=== PATIENT | female | born 1940 | race Caucasian/White ===

== ENCOUNTER 2018-06-26 15:47 | Inpatient (IN) | payer MEDICARE ==
--- NOTE | 2018-06-26 17:03 | RAD ---
LEFT HIP TWO VIEWS: HISTORY: Left hip pain. FINDINGS: Impaction at a subcapital fracture with minimal superior displacement of the major distal fragment. Mild degenerative changes of the hip. IMPRESSION: Impacted left hip fracture. POS: LATASHA
--- NOTE | 2018-06-26 17:04 | RAD ---
AP PELVIS ONE VIEW: HISTORY: Fall. Pelvic pain. FINDINGS: Left subcapital hip fracture again demonstrated. Sacral ala and pelvic rings are intact. Mild degen erative changes of the right hip and lumbar spine. IMPRESSION: Impacted subcapital fracture, left hip. POS: LATASHA
[2018-06-26 17:05] LABS: Bilirubin Negative (Negative); Blood, Urine Negative (Negative); Clarity CLEAR (Clear); Glucose, Urine (Dipstick) Negative (Negative); Leukocyte Negative (Negative); Nitrite Negative (Negative); Protein, Urine (Dipstick) Negative (Neg-Trace); Specific Gravity, Urine 1.017 (1.002-1.036); Urobilinogen 0.2 mg/dL (0.2-1.0); pH, Urine 6.5 (5.0-9.0)
[2018-06-26] MEDS ORDERED: Ondansetron PF 4 MG/2 ML Vial ONE (17:37)
[2018-06-26] MEDS ORDERED: Morphine 4 MG/ML VIAL ONE (17:37)
[2018-06-26 17:55] LABS: #Lymphocytes 0.8 thou/uL (1.20-3.40); #Monocytes 0.7 thou/uL (0.11-0.59); #Neutrophils 11.7 thou/uL (1.40-6.50); %Basophils 0.1 % (0.0-1.0); %Eosinophils 0.2 % (0.0-10.0); %Lymphocytes 6.3 % (21.0-51.0); %Monocytes 5.4 % (0.0-10.0); %Neutrophils 88.1 % (42.0-75.0); Hemoglobin 12.4 g/dL (12.0-16.0); Mean Corpuscular HGB CONC 33.1 g/dL (32.0-36.0); Mean Corpuscular Hemoglobin 30.6 pg (27.0-31.0); Mean Corpuscular Volume 92.4 fL (78.0-98.0); Mean Platelet Volume 8.1 fL (7.4-10.4); Platelet Count 177 thou/uL (130-400); RBC Distribution Width 12.3 % (11.5-14.5); Red Blood Cell (RBC) Count 4.07 mill/uL (4.20-5.40); White Blood Cell (WBC) Count 13.3 thou/uL (4.8-10.8)
[2018-06-26 18:03] LABS: Prothrombin Time 13.3 SEC (12.0-14.7)
[2018-06-26 18:17] LABS: ALT (SGPT) 36 U/L (8-55); AST (SGOT) 33 U/L (5-34); Albumin 4.1 g/dL (3.4-4.8); Alkaline Phosphatase 83 U/L (40-150); Anion Gap 17 mmol/L (10-20); BUN (Urea Nitrogen) 18 mg/dL (9.8-20.1); Bilirubin, Total 0.5 mg/dL (0.2-1.2); Calc. Creatinine Clearance 0 mL/min (70-130); Calcium 9.7 mg/dL (7.8-10.44); Carbon Dioxide 21 mmol/L (23-31); Chloride 101 mmol/L (98-107); Estimated GFR-MDRD 76; Globulin 3.1 g/dL (2.4-3.5); Glucose 106 mg/dL (83-110); Potassium 4.5 mmol/L (3.5-5.1); Protein, Total 7.2 g/dL (6.0-8.3); Sodium 134 mmol/L (136-145)
--- NOTE | 2018-06-26 18:44 | HP ---
ATTENDING SURGEON: Dr. Day. CONSULTATION: Orthopedics, Dr. Hsu. HISTORY OF PRESENT ILLNESS: The patient is a 78-year-old woman, who was transferred here from our facility from [facility], where she reportedly had a fall at the facility she lives in. The patient denies any loss of consciousness. She was brought to the emergency department there and underwent evaluation, was noted to have a left hip fracture. At which time, she was transferred to our facility for admission and orthopedic examination. ALLERGIES: PENICILLIN. CURRENT MEDICATIONS: 1. Calcium. 2. Loperamide. 3. Zofran. 4. Ibuprofen. PAST MEDICAL HISTORY: Breast, colon, and brain cancer. PAST SURGICAL HISTORY: Colon resection x2, lumpectomy on the left, and cholecystectomy. SOCIAL HISTORY: The patient lives in an assisted living facility. There is no history of drug, tobacco, or alcohol use. REVIEW OF SYSTEMS: A 10-point review of systems is negative except as otherwise stated. PHYSICAL EXAMINATION: VITAL SIGNS: Blood pressure 152/69, heart rate 102, respirations 17, oxygen saturation 93% on room air, and temperature is 99.3. GENERAL: The patient is resting comfortably in bed. She is awake, alert, and oriented x2. The patient does seem to have some confusion, but is easily redirected regarding time and location. HEENT: Normocephalic and atraumatic. Eyes, extraocular movement intact. PERRLA bilaterally. Ears are atraumatic without discharge. Nose is atraumatic without discharge. Oropharynx is clear. NECK: Nontender. Trachea is in midline. No JVD. CHEST: Clear to auscultation with good inspiratory and expiratory effort. HEART: Regular rate and rhythm. ABDOMEN: Soft, flat, nontender with active bowel sounds. PELVIS: Stable with tenderness to the left hip, consistent with her fracture. EXTREMITIES: Neurovascularly intact x4. The patient does have a small contusion noted to her lateral left knee. BACK: Atraumatic and nontender. LABORATORY EXAMINATION: White blood cell count 13.3, hemoglobin 12.4, hematocrit 37.6, and platelets 177. Urinalysis is unremarkable. The remaining labs are still pending. RADIOGRAPHIC FINDINGS: AP pelvis shows an impacted subcapital left femoral neck fracture. Views of the left hip again demonstrate impacted left hip fracture. ASSESSMENT: 1. Status post fall. 2. Left hip fracture. 3. History of brain, colon, and breast cancer. PLAN: Plan will be to admit the patient to the surgical floor. She will be made n.p.o. after midnight for plans of surgical intervention tomorrow. The patient will have pain control, pulmonary toilet, gastritis and mechanical VTE prophylaxis. The evaluation, examination, and laboratory findings will be discussed with Dr. Day after this dictation. The patient was evaluated in the emergency department by Dr. Hsu. Job ID: [id number]
[2018-06-26] MEDS ORDERED: Dextrose 50% Abboject 50 ML SYRINGE SLOW IVP PRN (19:12)
[2018-06-26] MEDS ORDERED: Dextrose 5% in Water 1,000 ML IV PRN (19:12)
[2018-06-26 19:46] LABS: #Lymphocytes 1.1 thou/uL (1.20-3.40); #Monocytes 0.8 thou/uL (0.11-0.59); #Neutrophils 10.7 thou/uL (1.40-6.50); %Basophils 0.1 % (0.0-1.0); %Eosinophils 0.3 % (0.0-10.0); %Lymphocytes 8.3 % (21.0-51.0); %Monocytes 6.4 % (0.0-10.0); %Neutrophils 84.8 % (42.0-75.0); Hemoglobin 11.7 g/dL (12.0-16.0); Mean Corpuscular HGB CONC 33.2 g/dL (32.0-36.0); Mean Corpuscular Hemoglobin 30.3 pg (27.0-31.0); Mean Corpuscular Volume 91.5 fL (78.0-98.0); Mean Platelet Volume 8.3 fL (7.4-10.4); Platelet Count 174 thou/uL (130-400); RBC Distribution Width 12.3 % (11.5-14.5); Red Blood Cell (RBC) Count 3.85 mill/uL (4.20-5.40); White Blood Cell (WBC) Count 12.6 thou/uL (4.8-10.8)
[2018-06-26 19:58] LABS: Anion Gap 14 mmol/L (10-20); BUN (Urea Nitrogen) 17 mg/dL (9.8-20.1); Calc. Creatinine Clearance 0 mL/min (70-130); Calcium 9.4 mg/dL (7.8-10.44); Carbon Dioxide 23 mmol/L (23-31); Chloride 102 mmol/L (98-107); Estimated GFR-MDRD 76; Glucose 114 mg/dL (83-110); Phosphorus 3.7 mg/dL (2.3-4.7); Potassium 4.3 mmol/L (3.5-5.1); Sodium 135 mmol/L (136-145)
[2018-06-26] MEDS: Acetaminophen 1,000 MG in Premix Bag 1 BAG IVPB SCH (20:10)
[2018-06-26] MEDS: Morphine 4 MG/ML VIAL SLOW IVP PRN (21:22)
[2018-06-26 22:52] VITALS: BMI 26.4
[2018-06-26] MEDS: Sodium Chloride 0.9% 1,000 ML IV SCH (23:51)
[2018-06-27] MEDS: Acetaminophen 1,000 MG in Premix Bag 1 BAG IVPB SCH ×3 (02:21→13:19)
[2018-06-27] MEDS: Morphine 4 MG/ML VIAL SLOW IVP PRN ×2 (06:07→14:12)
[2018-06-27 06:16] LABS: #Eosinphils 0.1 thou/uL (0.0-0.7); #Lymphocytes 0.9 thou/uL (1.20-3.40); #Monocytes 0.5 thou/uL (0.11-0.59); #Neutrophils 5.6 thou/uL (1.40-6.50); %Basophils 0.5 % (0.0-1.0); %Eosinophils 0.9 % (0.0-10.0); %Lymphocytes 13.1 % (21.0-51.0); %Monocytes 6.8 % (0.0-10.0); %Neutrophils 78.8 % (42.0-75.0); Hemoglobin 11.3 g/dL (12.0-16.0); Mean Corpuscular HGB CONC 32.9 g/dL (32.0-36.0); Mean Corpuscular Hemoglobin 30.3 pg (27.0-31.0); Mean Corpuscular Volume 92.2 fL (78.0-98.0); Mean Platelet Volume 8.2 fL (7.4-10.4); Platelet Count 154 thou/uL (130-400); RBC Distribution Width 12.4 % (11.5-14.5); Red Blood Cell (RBC) Count 3.74 mill/uL (4.20-5.40); White Blood Cell (WBC) Count 7.1 thou/uL (4.8-10.8)
[2018-06-27] MEDS: Sodium Chloride 0.9% 1,000 ML IV SCH ×2 (06:36→08:28)
[2018-06-27 06:37] LABS: Anion Gap 13 mmol/L (10-20); BUN (Urea Nitrogen) 13 mg/dL (9.8-20.1); Calc. Creatinine Clearance 68 mL/min (70-130); Carbon Dioxide 24 mmol/L (23-31); Chloride 104 mmol/L (98-107); Estimated GFR-MDRD 69; Glucose 102 mg/dL (83-110); Magnesium 2.2 mg/dL (1.6-2.6); Phosphorus 3.7 mg/dL (2.3-4.7); Potassium 4.1 mmol/L (3.5-5.1); Sodium 137 mmol/L (136-145)
[2018-06-27] MEDS ORDERED: Clindamycin/D5W 900 mg/50 ml Premix Bag ONE (08:49)
[2018-06-27] MEDS ORDERED: Levofloxacin 500 mg/D5W 100 ml Premix Bag ONE (08:49)
[2018-06-27] MEDS ORDERED: Prevnar 13-Val Conj/PF 0.5 ML SYRINGE IM ONE (09:00)
--- NOTE | 2018-06-27 09:27 | CON ---
DATE OF CONSULTATION: BRIEF HISTORY OF PRESENT ILLNESS: The patient is a 78-year-old lady who earlier this evening fell at the care facility where she lives. She reports she was just trying to get into bed when she slipped, fell, injuring her left hip. She was seen and evaluated at the [facility] in [place] where x-rays demonstrated impacted subcapital femoral neck fracture of the left hip. As such, she now is transferred to [place] and admitted to the trauma service for further care. PAST MEDICAL HISTORY: Remarkable for breast cancer, colon cancer, as well as brain cancer. PAST SURGICAL HISTORY: Includes colon resection x2, lumpectomy left breast, as well as cholecystectomy. MEDICATIONS: Include calcium, loperamide, Zofran, and ibuprofen. ALLERGIES: TO PENICILLIN. THIS IS A CHILDHOOD ALLERGY WITH SOME SWELLING AND SHORTNESS OF BREATH. SOCIAL HISTORY: She lives in assisted living facility. She denies alcohol, tobacco, or drug use. FAMILY HISTORY: Noncontributory. REVIEW OF SYSTEMS: Denies recent fevers, chills, or sweats. Denies chest pain or shortness of breath. Denies numbness or tingling in the lower extremities. PHYSICAL EXAMINATION: VITAL SIGNS: She is found to have temperature 98.8, heart rate of 85, respiratory rate of 16, and blood pressure 122/75. GENERAL: The patient is found to be awake, alert, although does become easily confused. HEENT: Atraumatic and normocephalic. HEART: Shows a regular rate and rhythm without murmur. CHEST: Clear to auscultation with good breath sounds bilaterally. ABDOMEN: Flat, soft with normal bowel sounds and scars from her prior surgeries. PELVIS: Stable. EXTREMITIES: Remarkable for a left lower extremity that is just held in slight external rotation at the hip, but there is no gross shortening. She has pain with any type of log-rolling or movement of the leg whatsoever and the pain is felt at the groin. The knee, ankle and foot appear atraumatic. She is moving her toes normally. Has intact subjective sensation over the dorsal and plantar aspects of the foot. LABORATORY DATA: Labs found to have a white count of 13, hematocrit of 37.6, 177,000 platelets. She has an INR of 1.0. Her basic metabolic panel is roughly within normal limits with the exception of a slightly low sodium of 134. X-rays of AP pelvis as well as two view left hip remarkable for an impacted subcapital femoral neck fracture with some varus alignment. ASSESSMENT: The patient is a 78-year-old status post fall sustaining left femoral neck fracture with comorbidities including history of brain, colon and breast cancer. PLAN: At this time, the patient will be admitted to the surgical floor on the Trauma Service. She is n.p.o. We will plan on proceeding with a left hip hemiarthroplasty with plans to send the femoral head to pathology to rule out metastatic pathologic cancer. Today I discussed with the patient risks and benefits of surgery. These include, but are not limited to bleeding, infection, nerve injury, DVT, PE, loss of limb or life. We also discussed risks of dislocation following this hemiarthroplasty procedure. She appears to understand and does wish to proceed. Consent will be obtained prior to surgery. Job ID: [id number]
[2018-06-27] MEDS ORDERED: Promethazine HCl 25 MG/ML VIAL IM PRN (10:04)
[2018-06-27] MEDS ORDERED: Ondansetron HCl/PF 4 MG/2 ML Vial IVP PRN (10:04)
[2018-06-27] MEDS ORDERED: Promethazine HCl 25 MG/ML VIAL SLOW IVP PRN (10:04)
[2018-06-27] MEDS ORDERED: SUGAMMADEX SODIUM 200 MG/2 ML VIAL ONE (10:59)
--- NOTE | 2018-06-27 11:48 | RAD ---
LEFT HIP 2 VIEWS: HISTORY: Left hip fracture. FINDINGS: Total left hip prosthesis is in place without perihardware lucency. Skin bridget overlie the incisio n. IMPRESSION: Left hip prosthesis is in good radiographic position. POS: LATASHA
[2018-06-27] MEDS ORDERED: traMADol HCl 50 MG TAB PO PRN (12:06)
--- NOTE | 2018-06-27 12:24 | OP ---
DATE OF PROCEDURE: 06/27/2018 PREOPERATIVE DIAGNOSIS: Left subcapital femoral neck fracture. POSTOPERATIVE DIAGNOSIS: Left subcapital femoral neck fracture. PROCEDURE PERFORMED: Left hip hemiarthroplasty. ANESTHESIA: General. MANIFEST CLERK: Floyd. ESTIMATED BLOOD LOSS: 350 mL. IMPLANTS: DePuy [place] size 4 stem was used with an ARTICUL/FABIANA +5 head and a bipolar 28 x 44 mm cup. SPECIMEN: Femoral head, sent to Pathology for gross and micro given history of extensive cancer diagnosis. DRAINS: None. COMPLICATIONS: None. OUTCOME: Stable hemiarthroplasty. INDICATION: The patient is a 78-year-old lady, status post ground level fall, sustaining a left subcapital femoral neck fracture. After discussion with the patient and her family, we have decided to proceed with hemiarthroplasty. Risks and benefits have been discussed with the patient. Risks include, but are not limited to bleeding, infection, nerve injury, DVT, PE, dislocation, loss of limb or life. They appear to understand and do wish to proceed. Consent has been obtained. DESCRIPTION OF PROCEDURE: The patient was brought to the operating room and a time-out was performed followed by induction of general anesthesia. Next, the patient was positioned in a right lateral decubitus position on the operating room table and a sterile prep and drape performed of the left lower extremity. Next, a curvilinear incision was made, centered over the greater trochanter after skin was sharply incised. Dissection carried down through the subcutaneous fat to the underlying fascia flaquita and tensor fascia. This structure was incised in line with the skin incision and reflected anteriorly and posteriorly with a Charnley retractor. The trochanteric bursa was swept off the short external rotators and then elevator was passed under the abductors. The piriformis, superior and inferior gemelli were divided off the posterior aspect of the proximal femur, tagged and then reflected posteriorly gaining access to the posterior capsule. A T-capsulotomy was then performed with leaflets of the capsule tagged for eventual repair. At this point, a T-handle awl was inserted in the femoral head and the femoral head was removed without difficulty, sized to size 44. Next, an oscillating saw was used to make a femoral neck cut. This was followed by box chisel and then T-handle awl and lateralizing reamer. Progressive T-handle awls were passed down the canal up to a size 4. Next, broaching was started at size 1 and continued up to size 4, which gave good fit and fill. At this point, trial reductions were performed and a +5 head was found to give good stability and was felt to be clinically equal leg lengths. As such, the trial broach was then removed. The proximal femur thoroughly irrigated with normal saline with Pulsavac and then the final 4 stem was introduced in the proximal femur followed by insertion of the bipolar head. The hip was reduced, found to have excellent stability. Next, the capsule was reapproximated with #2 Vicryl. This was followed by reapproximation of the short external rotators with #2 Vicryl, #2 Vicryl also used for the tensor fascia and fascia flaquita followed by 0 Vicryl for the Abraham fascia, 2-0 Vicryl subcutaneously, and bridget for the skin. Xeroform gauze and tape dressing were applied to the thigh and then the patient was transferred to recovery room in stable condition. There were no complications. The patient tolerated the procedure well. Job ID: [id number]
[2018-06-27] MEDS: traMADol HCl 50 MG TAB PO PRN (14:04)
[2018-06-27] MEDS ORDERED: Ondansetron PF 4 MG/2 ML Vial IVP PRN (14:11)
[2018-06-27] MEDS ORDERED: Morphine 4 MG/ML VIAL SLOW IVP PRN (14:13)
[2018-06-27] MEDS ORDERED: Ibuprofen 600 MG TAB PO SCH (14:15)
[2018-06-27] MEDS: Clindamycin/D5W 900 MG in Premix Bag 1 BAG IVPB SCH (17:35)
--- NOTE | 2018-06-27 17:42 | PRG ---
DATE OF SERVICE: 06/27/2018 SUBJECTIVE: The patient is hospital day #2, here on the surgical floor. She was admitted for ground level fall, where she sustained a left hip fracture. She is scheduled to undergo surgical repair today by Dr. Hsu. The patient has been n.p.o. after midnight. Her pain was controlled overnight. The patient has no new complaints. OBJECTIVE: VITAL SIGNS: Temperature is 98.2, heart rate 87, respirations 12, oxygen saturation 92% on room air, blood pressure 131/76. GENERAL: The patient is resting comfortably in bed. She is sleeping, but easily awakens to verbal stimuli. She is appropriate, though somewhat disoriented, but is able to be redirected. HEENT: Unremarkable. LUNGS: Clear to auscultation with good inspiratory and expiratory effort. HEART: Regular rate and rhythm. ABDOMEN: Soft, flat, nontender with hypoactive bowel sounds. EXTREMITIES: Neurovascularly intact x4. LABORATORY FINDINGS: White blood cell count 7.1, hemoglobin 11.3, hematocrit 34.4, platelets 154. Sodium 137, potassium 4.1, chloride 104, CO2 of 24, BUN 13, creatinine 0.80, glucose 120, magnesium 2.2, phosphorus 3.7. There are no radiographs to review this morning. ASSESSMENT: 1. Status post ground level fall. 2. Left hip fracture. PLAN: Plan will be to start physical and occupational therapies after surgery. Once the patient is tolerating diet, we will change her pain medications to p.o. and then tomorrow, we will discuss placement with the patient. Job ID: [id number]
[2018-06-27] MEDS ORDERED: Acetaminophen 500 MG TAB PO SCH (18:00)
[2018-06-27] MEDS: Acetaminophen 500 MG TAB PO SCH (20:13)
[2018-06-27] MEDS ORDERED: Dexamethasone 20 MG/5 ML VIAL ONE (21:09)
[2018-06-27] MEDS ORDERED: Succinylcholine Chloride 20 MG/ML 10 ml SYRINGE FS ONE (21:09)
[2018-06-27] MEDS ORDERED: PHENYLEPHRINE-NS 100 MCG/ML 10 ML SYRINGE ONE (21:09)
[2018-06-27] MEDS ORDERED: Glycopyrrolate 0.2 MG/ML 5 ML SYRINGE ONE (21:09)
[2018-06-27] MEDS ORDERED: PROPOFOL 200 MG/20 ML VIAL ONE (21:09)
[2018-06-27] MEDS ORDERED: Ondansetron PF 4 MG/2 ML Vial ONE (21:09)
[2018-06-27] MEDS: Ibuprofen 600 MG TAB PO SCH (21:58)
[2018-06-28] MEDS: Acetaminophen 500 MG TAB PO SCH ×4 (01:49→20:44)
[2018-06-28] MEDS: Clindamycin/D5W 900 MG in Premix Bag 1 BAG IVPB SCH ×2 (01:49→07:47)
[2018-06-28] MEDS: Ibuprofen 600 MG TAB PO SCH (06:11)
[2018-06-28] MEDS ORDERED: Ibuprofen 600 MG TAB PO SCH (06:30)
[2018-06-28] MEDS: Ibuprofen 200 MG TAB PO SCH ×3 (07:25→17:57)
[2018-06-28] MEDS: Aspirin 81 mg Enteric Coated Tablet PO SCH ×2 (07:46→20:44)
[2018-06-28] MEDS ORDERED: Sodium Chloride 0.9% 500 ML IV SCH (08:45)
[2018-06-28] MEDS: traMADol HCl 50 MG TAB PO PRN (10:39)
[2018-06-28 12:05] LABS: #Eosinphils 0.1 thou/uL (0.0-0.7); #Lymphocytes 0.9 thou/uL (1.20-3.40); #Monocytes 0.6 thou/uL (0.11-0.59); #Neutrophils 5.7 thou/uL (1.40-6.50); %Basophils 0.3 % (0.0-1.0); %Eosinophils 1.1 % (0.0-10.0); %Lymphocytes 11.8 % (21.0-51.0); %Monocytes 8.1 % (0.0-10.0); %Neutrophils 78.7 % (42.0-75.0); Mean Corpuscular HGB CONC 32.4 g/dL (32.0-36.0); Mean Corpuscular Hemoglobin 30.2 pg (27.0-31.0); Mean Corpuscular Volume 93.3 fL (78.0-98.0); Mean Platelet Volume 8.4 fL (7.4-10.4); Platelet Count 145 thou/uL (130-400); RBC Distribution Width 12.4 % (11.5-14.5); Red Blood Cell (RBC) Count 3.32 mill/uL (4.20-5.40); White Blood Cell (WBC) Count 7.2 thou/uL (4.8-10.8)
[2018-06-28 12:34] LABS: Anion Gap 11 mmol/L (10-20); BUN (Urea Nitrogen) 12 mg/dL (9.8-20.1); Calc. Creatinine Clearance 73 mL/min (70-130); Calcium 8.6 mg/dL (7.8-10.44); Carbon Dioxide 22 mmol/L (23-31); Chloride 107 mmol/L (98-107); Estimated GFR-MDRD 75; Glucose 111 mg/dL (83-110); Magnesium 1.9 mg/dL (1.6-2.6); Phosphorus 2.5 mg/dL (2.3-4.7); Sodium 136 mmol/L (136-145)
--- NOTE | 2018-06-28 13:21 | PRG ---
DATE OF SERVICE: 06/28/2018 SUBJECTIVE: Ms. Minor is a 78-year-old woman, who suffered closed left hip fracture following a fall 2 days previously. She is postoperative day #1 status post left hip hemiarthroplasty. This morning, she reports adequate pain control. She has poor oral intake overnight. Her blood pressure was noted to be low this morning, although the patient denies any syncope, dyspnea or chest pain. OBJECTIVE: VITAL SIGNS: This morning include a blood pressure of 99/64, pulse 93, respiratory rate is 16, temperature is 98.2 degrees Fahrenheit, and oxygen saturation is 95% on room air. HEENT: Reveals normocephalic and atraumatic. Pupils are equal, round, and reactive to light and accommodation. Extraocular muscles are intact bilaterally. No sclerae icterus are present. Oral mucosa is pink but dry. NECK: Supple. No palpable lymphadenopathy or thyromegaly present. She has no jugular venous distention noted. HEART: Reveals regular rate and rhythm. No murmurs or gallops auscultated. LUNGS: Clear to auscultation bilaterally. Her breathing was nonlabored. ABDOMEN: Soft, nontender, and nondistended. EXTREMITIES: Reveal 2+ radial and pedal pulses bilaterally. No ankle edema is present. NEUROLOGIC: Reveals no focal deficits present. LABORATORY FINDINGS: Today include a CBC with 7200 white blood cells, hemoglobin and hematocrit 10.0 and 31.0 respectively, in contrast to 11.3 and 34.4 preoperatively. Platelet count is stable at 145,000. Metabolic profile; sodium is 136, potassium is 4.0, chloride is 107, bicarb is 22, BUN and creatinine of 12 and 0.75 respectively, and glucose is 111. Phosphorus 2.5, magnesium is 1.9. IMPRESSION: 1. Postoperative day #1, status post left hip hemiarthroplasty, hemodynamically stable. 2. Acute hypomagnesemia. 3. Acute hypophosphatemia. PLAN: 1. The patient was given a bolus of normal saline 500 mL intravenously. Repeat blood pressure improved to 109/66. 2. We will initiate physical and occupational therapy. 3. Anticipate discharge to inpatient rehabilitation within the next 24 to 48 hours. Pending insurance authorization. 4. The above findings and plan have been discussed with the patient and her daughter at bedside. 5. Continue to follow the patient's urinary output as endpoint of resuscitation. Job ID: [id number]
[2018-06-28] MEDS: Senokot S 8.6-50 MG TAB PO SCH (20:44)
[2018-06-29] MEDS: Acetaminophen 500 MG TAB PO SCH ×4 (01:36→20:52)
[2018-06-29] MEDS: Ibuprofen 200 MG TAB PO SCH ×4 (01:36→18:24)
[2018-06-29] MEDS: Aspirin 81 mg Enteric Coated Tablet PO SCH ×2 (08:53→20:52)
[2018-06-29] MEDS: Senokot S 8.6-50 MG TAB PO SCH ×2 (08:53→20:53)
[2018-06-29] MEDS: Polyethylene Glycol 3350 17 GM Packet PO SCH (08:53)
[2018-06-29] MEDS: Docusate 100 MG CAP PO SCH ×2 (08:53→20:52)
[2018-06-29] MEDS: traMADol HCl 50 MG TAB PO SCH ×4 (10:01→20:52)
--- NOTE | 2018-06-29 12:09 | PRG ---
DATE OF SERVICE: 06/29/2018 The patient was seen with Dr. Rafat Yee. SUBJECTIVE: Ms. Minor is postop day #2, status post ORIF of the left hip. She is found sitting up in bed, states that she has 10/10 pain. Currently, her blood pressure was noted to be low the day before, however, has improved today and seems to be stable. The patient is also awaiting rehab placement in [place]. I discussed this with Case Management. OBJECTIVE: VITAL SIGNS: Temperature is 98.4, blood pressure is 129/78, heart rate is 84, breathing 14 times per minute. She is 94% on room air. GENERAL: This is a 78-year-old female, sitting up on the edge of the bed, appears to be in slight pain. HEENT: Normocephalic and atraumatic. RESPIRATORY: Equal rise and fall. No respiratory distress. CARDIOVASCULAR: Regular rhythm. ABDOMEN: Soft and nondistended. EXTREMITIES: She is able to move all of her extremities, warm. No edema. NEUROLOGIC: Seems to be alert and oriented. PSYCHIATRIC: A little bit withdrawn this morning. LABORATORY DATA: There is no laboratory data to review from today. A pathology report from her hip is pending. ASSESSMENT: 1. Postop day #2, status post left hip hemiarthroplasty. 2. Acute hypomagnesemia, on a diet. 3. Acute hypophosphatemia, currently on a diet. PLAN: 1. Discontinue the Chand catheter. 2. Continue to work with PT. 3. Scheduled tramadol 50 mg every 6 and then continue p.r.n. pain control. 4. Increase trauma bowel regimen as the patient has not stooled yet since arrival. 5. Continue all other supportive care. 6. Follow up pathology. 7. Hope for discharge to senior care rehab in 7 days. We discussed the case with Case Management and waiting for insurance authorization. Job ID: [id number]
[2018-06-30] MEDS: traMADol HCl 50 MG TAB PO SCH ×4 (01:45→13:03)
[2018-06-30] MEDS: Ibuprofen 200 MG TAB PO SCH ×3 (01:45→13:03)
[2018-06-30] MEDS: Acetaminophen 500 MG TAB PO SCH ×3 (01:45→13:03)
[2018-06-30] MEDS: Aspirin 81 mg Enteric Coated Tablet PO SCH (08:02)
[2018-06-30] MEDS: Polyethylene Glycol 3350 17 GM Packet PO SCH (08:02)
[2018-06-30] MEDS: Docusate 100 MG CAP PO SCH (08:02)
[2018-06-30] MEDS: Senokot S 8.6-50 MG TAB PO SCH (08:03)
[2018-06-30] MEDS ORDERED: Milk Of Magnesia 30 ML UDCUP PO SCH (09:00)
[2018-06-30 11:32] VITALS: BP 125/78; TEMP 97.6
--- NOTE | 2018-07-02 23:08 | DIS ---
DATE OF ADMISSION: 06/26/2018 DATE OF DISCHARGE: 06/30/2018 DISCHARGE SURGEON: Dr. Yee. CONSULT: Orthopedics, Dr. Hsu. PROCEDURES: 1. On 06/26/2018, hip x-ray; impression, impacted left hip fracture. 2. On 06/26/2018, pelvis x-ray; impression, impacted subcapital fracture, left hip. PRIMARY DIAGNOSIS: Impacted left hip fracture. SECONDARY DIAGNOSES: History of brain, colon, and breast cancer. DISCHARGE MEDICATIONS: 1. Acetaminophen 1000 mg p.o. q.6 hours. 2. Aspirin 81 mg p.o. b.i.d. 3. Calcium carbonate 500 mg p.o. q.i.d. 4. Colace 100 mg p.o. b.i.d. 5. Folic acid, multivitamin, Centrum Silver Chewable one tablet daily. 6. Ibuprofen 200 mg p.o. q.6 hours. 7. Advil PM Liqui-Gels two tablets p.o. h.s. as needed for insomnia. 8. Imodium 2 mg p.o. as needed. 9. Zofran ODT 4 mg tab as needed. 10. MiraLAX 17 g p.o. daily. 11. Senokot 2 tabs p.o. b.i.d. 12. Tramadol 50 mg p.o. q.4 hours as needed for severe pain. HISTORY OF PRESENT ILLNESS: This is a 78-year-old female, who was transferred from [facility], where she reportedly had a fall at the facility she lives in. The patient denies any loss of consciousness. She was brought to the emergency room there and underwent evaluation and was noted to have a left hip fracture. At that time, she was transferred to [facility] for admission and orthopedic evaluation. The patient did have decreased appetite during the hospital stay and had an episode of low blood pressure with no symptoms with the lower blood pressure. Otherwise, the patient's pain was controlled during her hospital stay. On the day of discharge, the patient was seen and evaluated with Dr. Rafat Yee. The patient had no complaints nor did the family. The patient's vital signs were stable on the day of discharge and exam was unremarkable including cardiopulmonary and GI exam. The patient was deemed stable for discharge to [facility] for continued physical therapy and occupational therapy. DISPOSITION: Stable. DISCHARGE INSTRUCTIONS: 1. Location: [facility]. 2. Diet: Regular diet. 3. Activity: Orthopedic limitations. Weightbearing as tolerated and hip precautions. 4. Followup: Follow up with as needed. Follow up with Dr. Yee as needed. Follow up Dr. Hsu. Call to schedule appointment. Job ID: [id number]
== END 2018-06-30 13:13 | DRG 470 ==
LOC: ERS 15:47 → SJJU 16:22
PROVIDERS: ADMIT Specialist; ATTEND Specialist
PROC: 0SRS01Z Replacement of Left Hip Joint, Femoral Surface with Metal Synthetic Substitute, Open Approach (ICD-10-PCS; principal; 2018-06-27)
DX: S72.002A Fracture of unspecified part of neck of left femur, initial encounter for closed fracture (principal); W19.XXXA Unspecified fall, initial encounter; Y92.10 Unspecified residential institution as the place of occurrence of the external cause; E83.42 Hypomagnesemia; E83.39 Other disorders of phosphorus metabolism; Z88.0 Allergy status to penicillin; Z85.3 Personal history of malignant neoplasm of breast; Z85.038 Personal history of other malignant neoplasm of large intestine; Z85.841 Personal history of malignant neoplasm of brain
CPT/HCPCS: 36415; 72170; 80048; 80053; 81003; 83735; 84100; 85025; 85610; 85730; 86850; 86900; 86901; 88305; 88311; 93005; 96361; 96374; 96375; G0390; J0131; J1100; J1956; J2270; J2405; J2704; J3490